=== PATIENT | male | born 1955 | race Two or more races ===

== ENCOUNTER → 2019-01-22 | Outpatient (CLI) | payer MEDICARE, MEDICAID ==
--- NOTE | 2019-01-22 16:40 | RADIOLOGY REPORT (SQ) ---
EXAM DESCRIPTION: C SP 4 OR 5 VIEWS COMPLETED DATE/TIME: 01/22/2019 3:18 pm REASON FOR STUDY: CERVICALGIA M54.5 LOW BACK PAIN M54.2 CERVICALGIA COMPARISON: None. NUMBER OF VIEWS: 6 views TECHNIQUE: AP, lateral, swimmer's lateral, obliques and odontoid radiographic images acquired of the cervical spine. LIMITATIONS: None. FINDINGS: There has been posterior decompression and fusion C4- 5 and C5-6. Grade 1 anterolisthesis of C5 relative to C4. Slightly exaggerated lordosis at the level of C5. Prevertebral soft tissues are normal. IMPRESSION: Cervical disc disease. Prior surgery. Mild malalignment. TECHNICAL DOCUMENTATION: JOB ID: [id number] [employer]- All Rights Reserved Reading location - IP/workstation name: [email or web address]
--- NOTE | 2019-01-22 16:42 | RADIOLOGY REPORT (SQ) ---
EXAM DESCRIPTION: LUMBAR SPINE COMPLETE COMPLETED DATE/TIME: 01/22/2019 3:18 pm REASON FOR STUDY: LOW BACK PAIN M54.5 LOW BACK PAIN M54.2 CERVICALGIA COMPARISON: None. NUMBER OF VIEWS: Five views including obliques. TECHNIQUE: AP, lateral, oblique, and sacral radiographic images acquired of the lumbar spine. LIMITATIONS: None. FINDINGS: MINERALIZATION: Normal. SEGMENTATION: Transitional vertebra. ALIGNMENT: Mild convex left scoliosis. Grade 1 anterolisthesis L4 relative to L3. VERTEBRAE: No acute fracture. DISCS: Multilevel disc space narrowing with osteophytes. POSTERIOR ELEMENTS: Pedicles and facets are intact. No pars defect or posterior arch defects. Facet arthropathy is present. HARDWARE: None in the spine. PARASPINAL SOFT TISSUES: Normal. PELVIS: Intact as visualized. No fractures or worrisome bone lesions. SI joints intact. OTHER: No other significant finding. IMPRESSION: Spondylosis. Mild malalignment. TECHNICAL DOCUMENTATION: JOB ID: [id number] [employer]- All Rights Reserved Reading location - IP/workstation name: [email or web address]
== END ==
LOC: OD 14:31
PROVIDERS: ATTEND Physician Assistant
DX: M54.5 Low back pain (principal); M54.2 Cervicalgia
CPT/HCPCS: 72050; 72110

== ENCOUNTER → 2020-05-11 | Outpatient (CLI) | payer MEDICARE, MEDICAID ==
--- NOTE | 2020-05-11 13:34 | RADIOLOGY REPORT (SQ) ---
EXAM DESCRIPTION: T SPINE AP/LAT IMAGES COMPLETED DATE/TIME: 05/11/2020 1:24 pm REASON FOR STUDY: V M54.6 PAIN IN THORACIC SPINE COMPARISON: None. NUMBER OF VIEWS: Two views. TECHNIQUE: AP and lateral radiographic images acquired of the thoracic spine. LIMITATIONS: None. FINDINGS: MINERALIZATION: Normal. ALIGNMENT: Scoliosis in the thoracic spine. VERTEBRAE: No fracture or bone lesion. Maintained height, normal segmentation. DISCS: No significant loss of height or significant narrowing. No large osteophytes. HARDWARE: None in the spine. MEDIASTINUM AND SOFT TISSUES: Normal heart size and aortic contour. No soft tissue abnormality. VISUALIZED LUNG KAY: Clear. OTHER: No other significant finding. IMPRESSION: Thoracic scoliosis. No acute finding. TECHNICAL DOCUMENTATION: JOB ID: [id number] 2010 [employer]- All Rights Reserved Reading location - IP/workstation name: [email or web address]
--- NOTE | 2020-05-11 13:56 | RADIOLOGY REPORT (SQ) ---
EXAM DESCRIPTION: LUMBAR SPINE COMPLETE IMAGES COMPLETED DATE/TIME: 05/11/2020 1:24 pm REASON FOR STUDY: PAIN IN THORACIC SPINE M54.6 PAIN IN THORACIC SPINE COMPARISON: None. NUMBER OF VIEWS: Five views including obliques. TECHNIQUE: AP, lateral, oblique, and sacral radiographic images acquired of the lumbar spine. LIMITATIONS: None. FINDINGS: MINERALIZATION: Normal. SEGMENTATION: Normal. No transitional anatomy. ALIGNMENT: Mild scoliosis. VERTEBRAE: Maintained height. No fracture or worrisome bone lesion. DISCS: Disc spaces are narrowed from L3-S1. Marginal osteophytes are present. POSTERIOR ELEMENTS: Hypertrophic facet changes at L5-S1. HARDWARE: None in the spine. PARASPINAL SOFT TISSUES: Normal. PELVIS: Intact as visualized. No fractures or worrisome bone lesions. SI joints intact. OTHER: No other significant finding. IMPRESSION: Scoliosis, degenerative disc disease, spondylosis, and facet arthropathy. TECHNICAL DOCUMENTATION: JOB ID: [id number] 2010 [employer]- All Rights Reserved Reading location - IP/workstation name: [email or web address]
== END ==
LOC: RAD 12:59
PROVIDERS: ATTEND Family Medicine
DX: M51.37 Other intervertebral disc degeneration, lumbosacral region (principal); M47.817 Spondylosis without myelopathy or radiculopathy, lumbosacral region
CPT/HCPCS: 72070; 72110